=== PATIENT | female | born 1995 | race African-American/Black ===

== ENCOUNTER 2016-10-22 11:38 | Inpatient (IN) ==
[2016-10-22] MEDS ORDERED: STADOL IV PRN ×3 (19:47)
[2016-10-22] MEDS ORDERED: PEPCID IV PRN (19:47)
[2016-10-22] MEDS ORDERED: AMBIEN PO PRN (19:47)
[2016-10-22] MEDS ORDERED: TYLENOL PO PRN (19:47)
[2016-10-22] MEDS ORDERED: ZOFRAN IV PRN (19:47)
[2016-10-22] MEDS ORDERED: PEPCID PO PRN (19:47)
[2016-10-22] MEDS ORDERED: BRETHINE SUBQ PRN (19:47)
[2016-10-22] MEDS ORDERED: KEFZOL 1 GM/D5W 1 GM/50 ML IVPB IV PRN (19:47)
[2016-10-22] MEDS ORDERED: PITOCIN 30 UNITS/LR 30 UNITS/500 ML IV.SOLN IV SCH (19:47)
[2016-10-22] MEDS: LR 1,000 ML IV ONE (21:37)
[2016-10-22 21:58] LABS: URINE SOURCE VOIDED
[2016-10-22 21:58] LABS: MANUAL DIFF NEEDED? NO
[2016-10-22 22:04] LABS: BASO% 0.2 % (0.0-0.8); EOS# 0.05 X1000 (0.0-0.7); EOS% 0.8 % (0.0-10.0); HEMATOCRIT 36.8 % (37.0-47.0); HEMOGLOBIN 12.5 g/dL (12.0-16.0); IMM GRAN# 0.03 X1000 (0.0-0.04); IMM GRAN% 0.5 % (0.0-0.5); LYMPH# 1.22 X1000 (1.2-3.4); LYMPH% 18.5 % (20.5-51.1); MCH 32.7 PG (27-31); MCV 96.3 FL (81-99); MONO# 0.79 X1000 (0.11-0.59); MPV 10.9 FL (7.4-10.4); PLT 156 X1000 (130-400); RBC 3.82 XMIL (4.2-5.4)
[2016-10-22 22:07] LABS: UR AMPHETAMINES QUAL NONE DETECTED (NONE DETECT); UR BARBITUATES QUAL NONE DETECTED (NONE DETECT); UR BENZODIAZEPIN QUAL NONE DETECTED (NONE DETECT); UR CANNABINOIDS QUAL NONE DETECTED (NONE DETECT); UR COCAINE QUAL NONE DETECTED (NONE DETECT); UR MDMA QUAL NONE DETECTED (NONE DETECT); UR METHADONE QUAL NONE DETECTED (NONE DETECT); UR METHAMPHETAMINE QUAL NONE DETECTED (NONE DETECT); UR OPIATES QUAL NONE DETECTED (NONE DETECT); UR OXYCODONE QUAL NONE DETECTED (NONE DETECT); UR PCP QUAL NONE DETECTED (NONE DETECT); UR TCA QUAL NONE DETECTED (NONE DETECT)
[2016-10-22 22:28] LABS: BILIRUBIN URINE NEGATIVE (NEGATIVE); BLOOD URINE 4+ (NEGATIVE); CLARITY CLEAR (CLEAR); COLOR YELLOW; GLUCOSE URINE NEGATIVE (NEGATIVE); LEUKOCYTES URINE TRACE (NEGATIVE); NITRITE URINE NEGATIVE (NEGATIVE); PH URINE 6.5; PROTEIN URINE NEGATIVE (NEGATIVE); SP GRAVITY URINE 1.015; UROBILINOGEN URINE NORMAL
[2016-10-22] MEDS ORDERED: CYTOTEC PO ONE (23:00)
[2016-10-23] MEDS ORDERED: CYTOTEC PO SCH (03:00)
[2016-10-23] MEDS ORDERED: FENTANYL-BUPIV-NS 2 MCG-0.1% 200 ML EPIDURAL PRN (07:15)
[2016-10-23] MEDS: LR 1,000 ML IV ONE ×2 (07:49→10:20)
[2016-10-23] MEDS ORDERED: BICITRA PO ONE (18:19)
[2016-10-23] MEDS ORDERED: PITOCIN ONE ×2 (18:36→19:25)
[2016-10-23] MEDS ORDERED: ROBINUL ONE (18:36)
[2016-10-23] MEDS ORDERED: XYLOCAINE-MPF 2% ONE ×2 (18:36→19:10)
[2016-10-23] MEDS ORDERED: NEO-SYNEPHRINE ONE (18:36)
[2016-10-23] MEDS ORDERED: NS 100 ML ONE (18:36)
[2016-10-23] MEDS ORDERED: DIPRIVAN 1% ONE (18:38)
[2016-10-23] MEDS ORDERED: LR 1,000 ML ONE (18:43)
--- NOTE | 2016-10-23 18:53 | HISTORY AND PHYSICAL ---
PREOPERATIVE DIAGNOSES: 1. Intrauterine in at 39 weeks. 2. Arrest of dilation. 3. Arrest of descent. 4. 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 CONDITION: Stable. HISTORY OF PRESENT ILLNESS: Ms Aguilar is a 21-year-old primigravida with estimated date of delivery of 10/29/2016 who began care at 10 weeks and has had no complications throughout her , A positive blood type. GC and Chlamydia were negative, hepatitis B negative. RPR nonreactive. HIV negative. Rubella immune. She did admit to be positive for HSV and has been on suppression throughout her with no outbreaks. Her 1 hour glucose tolerance test was normal and a GBS is negative. She was admitted last night for labor induction with a favorable cervix. She received Cytotec x2 doses and this morning she was checked and found to be 2 cm slightly posterior, ruptured, clear fluid and she had already gotten an epidural by that point due to labor pain so she labored throughout the day but as of this afternoon she did not progress past 5-6 cm and very high and now developing some scalp edema and caput so decision was made to proceed with . Patient's mother in the room and the patient herself was delivered via delivery due to a failure to progress. PAST MEDICAL HISTORY: Significant for the maternal HSV. PAST SURGICAL HISTORY: She has no past surgical history. ALLERGIES: She has no known drug allergies. MEDICATIONS: She is on Valtrex and vitamins. SOCIAL HISTORY: Is negative x3. She is here with father of the baby and her mother. FAMILY HISTORY: Other than what has been mentioned is noncontributory. PHYSICAL EXAM: VITAL SIGNS: Blood pressure 100/50, temperature 98 degrees, pulse 85, respiration 18. GENERAL: She is alert and cooperative. She is not in any distress due the epidural. LUNGS: Are clear. HEART: Regular sinus rhythm. ABDOMEN: Is gravid. Cervix as before. EXTREMITIES: +2 lower extremity edema. LABORATORY VALUES: Hemoglobin and hematocrit 12/36, platelets 156,000. Urine was negative. Toxicology was negative and serology RPR is nonreactive. ASSESSMENT: As above. PLAN: Low transverse delivery. cc: Phillip Bernardo MD
[2016-10-23] MEDS ORDERED: VERSED ONE ×2 (19:17→19:22)
[2016-10-23] MEDS ORDERED: DURAMORPH ONE (19:18)
[2016-10-23] MEDS ORDERED: METHERGINE ONE (19:19)
[2016-10-23] MEDS ORDERED: KETALAR ONE (19:20)
[2016-10-23] MEDS ORDERED: TORADOL ONE (19:48)
[2016-10-23] MEDS ORDERED: PITOCIN 20 UNITS/LR 20 UNITS/1,000 ML IV.SOLN ONE (19:50)
[2016-10-23] MEDS ORDERED: DILAUDID ONE (19:57)
[2016-10-23] MEDS ORDERED: ZOFRAN ODT PO PRN (20:17)
[2016-10-23] MEDS ORDERED: ZOFRAN IV PRN ×3 (20:17→20:26)
[2016-10-23] MEDS ORDERED: BENADRYL IV PRN (20:17)
[2016-10-23] MEDS ORDERED: NARCAN INJ PRN (20:17)
[2016-10-23] MEDS ORDERED: DILAUDID IV PRN (20:21)
[2016-10-23] MEDS ORDERED: DEMEROL PO PRN ×2 (20:29)
[2016-10-23] MEDS ORDERED: DULCOLAX PR PRN (20:29)
[2016-10-23] MEDS ORDERED: DEMEROL IM PRN (20:29)
[2016-10-23] MEDS ORDERED: PHENERGAN IM PRN (20:29)
[2016-10-23] MEDS ORDERED: HYDROXYZINE IM PRN (20:29)
[2016-10-23] MEDS ORDERED: CYTOTEC PO PRN (20:29)
[2016-10-23] MEDS ORDERED: HYDROXYZINE PO PRN (20:29)
[2016-10-23] MEDS ORDERED: PITOCIN 20 UNITS/LR 20 UNITS/1,000 ML IV.SOLN IV ONE (20:29)
[2016-10-23] MEDS ORDERED: PITOCIN IM PRN (20:29)
[2016-10-23] MEDS ORDERED: M-M-R II VACCINE SUBQ ONE (20:29)
[2016-10-23] MEDS ORDERED: PERCOCET-5 PO PRN (20:29)
[2016-10-23] MEDS ORDERED: BOOSTRIX VACCINE IM ONE (20:29)
--- NOTE | 2016-10-23 20:45 | OPERATIVE NOTE ---
PROCEDURE DATE: 10/23/2016 PREOPERATIVE DIAGNOSES: 1. Intrauterine at 39 weeks. 2. Arrest of dilation. 3. Arrest of descent. 4. History of maternal herpes simplex virus. POSTOP DIAGNOSES: 1. Intrauterine at 39 weeks. 2. Arrest of dilation. 3. Arrest of descent. 4. History of maternal herpes simplex virus. PROCEDURE: Low transverse section. PHYSICIAN: Dr. Bernardo. ANESTHESIA: Epidural with Dr. Lee and Dr. Amador. FINDINGS: Viable female . Apgars were 9, 10 and baby's weight was 7 pounds 6 ounces. Cord was 3 vessels. Placenta appeared normal. ESTIMATED BLOOD LOSS: 700 mL. COMPLICATIONS: No complications. DRAIN: Chong catheter. DESCRIPTION OF PROCEDURE: Please refer to Ms. Isbell's records and H and P. She was admitted last night, received Cytotec, was in active labor. Was artificially ruptured this morning and did not progress past 6 cm. With passive station of 2 despite being in adequate labor and staying at that dilation and stations 4 hours so decision was made to proceed with delivery. She was brought to the operating room. Epidural anesthesia was dosed. She was prepped and draped. Chong catheter had been inserted previously. Adequate anesthesia was verified to the T10 level. A Pfannenstiel skin incision was made, extended down through the subcuticular tissue and the fascia, cut on the fascia was extended laterally with curved Duarte's. Rectus muscle was dissected from underneath the rectus fascia cephalad using sharp dissection and then pulled to the side. Peritoneum was entered bluntly. A bladder blade was placed and a hysterotomy incision was made in the lower uterine segment. The was elevated out of the pelvis and delivered occiput anterior through the hysterotomy incision. Once head delivered, shoulders and rest of the body delivered without difficulty and cord was doubly clamped and cut. Care of was taken over by pediatric personnel. Cord blood was obtained then uterus was massaged to deliver the placenta, which is delivered intact. Uterus was then exteriorized and wiped free of clots and remaining placental tissue. Hysterotomy incision was closed in a single layer with 0 chromic running and locking with good hemostasis. After this was done the fundus, tubes and ovaries were evaluated. They were normal. Uterus was placed back into the abdomen. Good hemostasis was noted. Irrigation was done. Then peritoneum was closed with 0 chromic running and nonlocking and the muscle was plicated in the midline with interrupted stitches of 0 chromic. Fascia was reapproximated with 0 Vicryl 1st with interrupted stitches in a running nonlocking stitch. Subcutaneous tissue was irrigated, made hemostatic by electrocautery and then Jose Luis fascia was closed with 3-[address] some Surgicel underneath the fascia against the muscle for persistent oozing. Once Jose Luis's fascia was reapproximated skin was reapproximated with 4-0 Biosyn in a subcuticular stitch. All counts were correct. She was taken to the recovery room in stable condition. cc: Phillip Bernardo MD
[2016-10-23] MEDS: PITOCIN 10 UNITS/LR 10 UNIT/1,000 ML IV.SOLN IV SCH (22:47)
[2016-10-23] MEDS: TORADOL IV SCH (22:56)
[2016-10-24] MEDS: PERICOLACE PO SCH ×2 (02:32→21:18)
[2016-10-24] MEDS: MYLICON PO SCH ×5 (02:32→21:18)
[2016-10-24] MEDS: MYLICON PO PRN ×2 (02:37→23:10)
[2016-10-24] MEDS: TORADOL IV SCH ×3 (02:38→13:56)
[2016-10-24] MEDS: DILAUDID IV PRN ×2 (04:28→10:21)
[2016-10-24] MEDS: PITOCIN 10 UNITS/LR 10 UNIT/1,000 ML IV.SOLN IV SCH ×2 (05:49→07:23)
[2016-10-24 06:34] LABS: MANUAL DIFF NEEDED? NO
[2016-10-24 06:47] LABS: BASO% 0.1 % (0.0-0.8); EOS# 0.03 X1000 (0.0-0.7); EOS% 0.3 % (0.0-10.0); HEMATOCRIT 30.8 % (37.0-47.0); HEMOGLOBIN 10.3 g/dL (12.0-16.0); IMM GRAN# 0.03 X1000 (0.0-0.04); IMM GRAN% 0.3 % (0.0-0.5); LYMPH# 0.91 X1000 (1.2-3.4); LYMPH% 9.3 % (20.5-51.1); MCH 32.7 PG (27-31); MCHC 33.4 g/dL (33-37); MCV 97.8 FL (81-99); MONO% 6.1 % (1.7-9.3); MPV 10.3 FL (7.4-10.4); NEUT% 83.9 % (42.2-75.2); PLT 132 X1000 (130-400); RBC 3.15 XMIL (4.2-5.4)
[2016-10-24] MEDS: VALTREX PO SCH (08:40)
[2016-10-24] MEDS: PRECARE PO SCH (08:40)
--- NOTE | 2016-10-24 12:30 | PROGRESS NOTE ---
DATE: 10/24/2016 She is postop day 1. Vital signs are stable. She is afebrile. She is alert and cooperative. She is her baby and is doing well. She has not yet ambulated or had any diet and a Chong catheter is still in place. PHYSICAL EXAM: Neck: Supple. Lungs: Clear. Heart: Regular sinus rhythm. Abdomen: Distended. Incision is still bandaged but the bandage is dry. +2 lower extremity edema. Hemoglobin and hematocrit 10/30. Hemoglobin is down 2 from preop. ASSESSMENT: postop day 1. PLAN: Routine care and advance diet. SP Chong. Advance ambulation. Probable discharge in the morning. cc: Phillip Bernardo MD
[2016-10-24] MEDS: PERCOCET-10 PO PRN ×2 (18:03→23:10)
[2016-10-24] MEDS ORDERED: LR 1,000 ML IV SCH (18:31)
[2016-10-24] MEDS: MOTRIN PO PRN (23:10)
[2016-10-24] MEDS: AMBIEN PO PRN (23:10)
[2016-10-25] MEDS: PERCOCET-10 PO PRN ×4 (08:06→23:28)
[2016-10-25] MEDS: MOTRIN PO PRN ×2 (08:06→19:11)
[2016-10-25] MEDS: VALTREX PO SCH ×2 (08:51→13:13)
[2016-10-25] MEDS: PRECARE PO SCH (08:52)
[2016-10-25] MEDS: MYLICON PO SCH ×4 (08:53→23:28)
--- NOTE | 2016-10-25 16:15 | PROGRESS NOTE ---
DATE: 10/25/2016 SUBJECTIVE: She is postop and day 2. Ms Aguilar is resting in bed. She appears to be in mild distress, complains of incisional pain. She states she is tolerating p.o. and ambulating and voiding. However she does not feel like she can go home today and she is hopeful for tomorrow. OBJECTIVE: Vital signs: Blood pressure 111/55, pulse 90, respirations 20, temperature 97.5 degrees. General: She is alert and cooperative. Pertinent exam: Abdomen is distended, uterus is firm. Incision is dry and intact. LABS: No new laboratory values. ASSESSMENT: Postop and day 2. PLAN: Routine care, probable discharge in the morning. cc: Phillip Bernardo MD
[2016-10-25] MEDS: PERICOLACE PO SCH (23:28)
[2016-10-25] MEDS: AMBIEN PO PRN (23:28)
[2016-10-26] MEDS: MOTRIN PO PRN (06:27)
[2016-10-26] MEDS: PERCOCET-10 PO PRN (06:27)
[2016-10-26 08:34] VITALS: BP 117/72
[2016-10-26] MEDS: MYLICON PO SCH (08:35)
[2016-10-26] MEDS: VALTREX PO SCH (08:35)
[2016-10-26] MEDS: PRECARE PO SCH (08:35)
--- NOTE | 2016-10-26 08:36 | DISCHARGE SUMMARY ---
ADMISSION DATE: 10/22/2016 DISCHARGE DATE: 10/26/2016 ADMITTING DIAGNOSIS: Intrauterine at 39 weeks, failed induction with failure to progress and cephalopelvic disproportion. DISCHARGE DIAGNOSIS: Intrauterine at 39 weeks, failed induction with failure to progress and cephalopelvic disproportion. PRINCIPAL PROCEDURE: Primary low transverse section per Dr. Phillip Bernardo in which a female infant was delivered weighing 7 pounds 6 ounces, Apgars of 9 and 10 at 1 and 5, respectively. DISCHARGE DIET: Regular. DISCHARGE DISPOSITION: Home. DISCHARGE FOLLOWUP: 1 to 2 weeks for incision recheck. DISCHARGE MEDICATIONS: [place] 10, Motrin 800 mg, Valtrex 500 mg. Postoperative course was uncomplicated. cc: MD Phillip De La Garza MD
== END 2016-10-26 10:50 | disposition home or self-care (01) ==
LOC: P.LD 19:45
PROVIDERS: ADMIT Obstetrics & Gynecology; ATTEND Obstetrics & Gynecology